=== PATIENT | male | born 1985 | race Caucasian/White ===

== ENCOUNTER 2021-02-06 17:39 | Emergency (ER) | payer SELFPAY ==
[2021-02-06 17:50] VITALS: BP 162/107; PULSE 82
[2021-02-06] MEDS ORDERED: HYDROmorphone 1 MG/ML Syringe IVPUSH STA (17:55)
[2021-02-06] MEDS ORDERED: Ondansetron 4 MG/2 ML SDV IVPUSH ONE (17:55)
[2021-02-06] MEDS ORDERED: Sodium Chloride 0.9% 1,000 ML IV SCH (18:00)
[2021-02-06] MEDS ORDERED: Sodium Chloride 0.9% 10 ML Syringe FLUSH PRN (18:11)
--- NOTE | 2021-02-06 18:25 | EDM.PDOC ---
ED HPI GENERAL MEDICAL PROBLEM - General Chief Complaint: Abdominal Pain Stated Complaint: LT SIDE ABDOMINAL PAIN Time Seen by Provider: 02/06/21 17:55 Source of Information: Reports: Patient, RN Notes Reviewed History Limitations: Reports: No Limitations - History of Present Illness INITIAL COMMENTS - FREE TEXT/NARRATIVE: Patient is a 35-year-old male who presents to the ER for the evaluation of his left-sided abdominal pain. Does state that this has been present since Monday evening, and it seems to be gradually getting worse. He does note a dull ache at baseline, that does intensify to a sharp stabbing pain with moving, coughing, or any sort of pressure changes in his abdomen. He went to the walk- in clinic yesterday, had some labs taken along with a urinalysis which were normal he was sent home with some magnesium citrate. States he has had multiple bowel movement since then and the pain has not gotten any better. He has had no fevers or chills, no signs of diarrhea, nausea or vomiting. He still has his appendix, but has had his gallbladder removed. Further denying any sort of urinary symptoms. States he was taking pain meds a few days ago however they did not seem to help so he stopped taking them. Does note that he has been fairly healthy otherwise. Left Lower Abdomen Pain Score (Numeric/FACES): 6 - Related Data Allergies Allergy/AdvReac Type Severity Reaction Status Date / Time No Known Allergies Allergy Verified 02/06/21 17:50 Home Meds: Home Meds Hydrocodone/Acetaminophen [Hydrocodone-Acetamin 5-325 mg] 1 tab PO Q6H PRN #15 tab 02/06/21 [Rx] Sertraline [Zoloft] 150 mg PO DAILY 02/06/21 [History] Past Medical History - Past Health History Medical/Surgical History: Denies Medical/Surgical History Respiratory History: Reports: PE Other Respiratory History: Pulmonary embolism Other Gastrointestinal History: biliary colic, gallstones Neurological History: Reports: Headaches, Chronic Hematologic History: Reports: Other (See Below) Other Hematologic History: Leiden Factor V Other Dermatologic History: discoloration of skin - Past Surgical History Other Cardiovascular Surgeries/Procedures: Echocardiogram GI Surgical History: Reports: Cholecystectomy Musculoskeletal Surgical History: Reports: Arthroscopic Knee Social & Family History - Tobacco Use Tobacco Use Status *Q: Current Every Day Tobacco User Years of Tobacco use: 15 Packs/Tins Daily: 0.2 - Recreational Drug Use Recreational Drug Use: No ED ROS GENERAL - Review of Systems Review Of Systems: Comprehensive ROS is negative, except as noted in HPI. ED EXAM, GI/ABD - Physical Exam Exam: See Below Exam Limited By: No Limitations General Appearance: Alert, WD/WN, No Apparent Distress Respiratory/Chest: No Respiratory Distress, Lungs Clear, Normal Breath Sounds, No Accessory Muscle Use, Chest Non-Tender Cardiovascular: Normal Peripheral Pulses, Regular Rate, Rhythm, No Edema GI/Abdominal Exam: Normal Bowel Sounds, Soft, No Distention, No Mass, Tender (LLQ mainly) Extremities: Normal Inspection, Normal Capillary Refill Neurological: Alert, Oriented, Normal Cognition, No Motor/Sensory Deficits Psychiatric: Normal Affect, Normal Mood Skin Exam: Warm, Dry, Intact, Normal Color, No Rash Course - Vital Signs Last Recorded V/S: Last Vital Signs Temp 97.8 F 02/06/21 17:48 Pulse 82 02/06/21 17:48 Resp 16 02/06/21 17:48 BP 162/107 H 02/06/21 17:48 Pulse Ox 97 02/06/21 17:48 - Orders/Labs/Meds Orders: Active Orders 24 hr Category Date Time Status Peripheral IV Care [RC] . DIRECTED Care 02/06/21 18:16 Active Sodium Chloride 0.9% [Normal Saline] 1,000 ml Med 02/06/21 18:00 Active IV ASDIRECTED Sodium Chloride 0.9% [Normal Saline] 100 ml Med 02/06/21 19:45 Active IV ASDIRECTED Sodium Chloride 0.9% [Saline Flush] Med 02/06/21 18:11 Active 10 ml FLUSH ASDIRECTED PRN Sodium Chloride 0.9% [Saline Flush] Med 02/06/21 19:45 Active 10 ml FLUSH BOLUS Peripheral IV Insertion Adult [OM.PC] Stat Oth 02/06/21 17:56 Ordered Medication Orders Sodium Chloride (Normal Saline) 1,000 mls @ 999 mls/hr IV ASDIRECTED LILLIE Last Admin: 02/06/21 19:08 Dose: 999 mls/hr Documented by: OMLLY Sodium Chloride (Normal Saline) 100 mls @ 60 drops/hr IV ASDIRECTED LILLIE Sodium Chloride (Sodium Chloride 0.9% 10 Ml Syringe) 10 ml FLUSH ASDIRECTED PRN PRN Reason: Keep Vein Open Last Admin: 02/06/21 19:07 Dose: 10 ml Documented by: MOLLY Sodium Chloride (Sodium Chloride 0.9% 10 Ml Syringe) 10 ml FLUSH BOLUS LILLIE Labs: Laboratory Tests 02/06/21 02/06/21 02/06/21 Range/Units 18:50 18:50 19:16 WBC 6.45 (4.23-9.07) K/mm3 RBC 4.92 (4.63-6.08) M/mm3 Hgb 15.1 (13.7-17.5) gm/dl Hct 43.4 (40.1-51.0) % MCV 88.2 (79.0-92.2) fl MCH 30.7 (25.7-32.2) pg MCHC 34.8 (32.2-35.5) g/dl RDW Std Deviation 42.3 (35.1-43.9) fL Plt Count 250 D (163-337) K/mm3 MPV 8.8 L (9.4-12.3) fl Neut % (Auto) 57.7 (34.0-67.9) % Lymph % (Auto) 30.1 (21.8-53.1) % Howard % (Auto) 8.2 (5.3-12.2) % Eos % (Auto) 3.3 (0.8-7.0) Baso % (Auto) 0.5 (0.1-1.2) % Neut # (Auto) 3.73 (1.78-5.38) K/mm3 Lymph # (Auto) 1.94 (1.32-3.57) K/mm3 Howard # (Auto) 0.53 (0.30-0.82) K/mm3 Eos # (Auto) 0.21 (0.04-0.54) K/mm3 Baso # (Auto) 0.03 (0.01-0.08) K/mm3 Sodium 141 (136-145) mEq/L Potassium 4.1 (3.5-5.1) mEq/L Chloride 104 (98-107) mEq/L Carbon Dioxide 26 (21-32) mEq/L Anion Gap 15.1 H (5-15) BUN 17 (7-18) mg/dL Creatinine 1.0 (0.7-1.3) mg/dL Est Cr Clr Drug Dosing 128.99 mL/min Estimated GFR (MDRD) > 60 (>60) mL/min BUN/Creatinine Ratio 17.0 (14-18) Glucose 115 H (70-99) mg/dL Calcium 8.5 (8.5-10.1) mg/dL Total Bilirubin 0.2 (0.2-1.0) mg/dL AST TNP ALT TNP Alkaline Phosphatase 78 (46-116) U/L C-Reactive Protein 1.5 H* (<1.0) mg/dL Total Protein 6.9 (6.4-8.2) g/dl Albumin 3.8 (3.4-5.0) g/dl Globulin 3.1 gm/dL Albumin/Globulin Ratio 1.2 (1-2) Lipase 125 (73-393) U/L Urine Color Yellow (Yellow) Urine Appearance Clear (Clear) Urine pH 7.0 (5.0-8.0) Ur Specific Anthony 1.025 (1.005-1.030) Urine Protein Negative (Negative) Urine Glucose (UA) Negative (Negative) Urine Ketones Negative (Negative) Urine Occult Blood Negative (Negative) Urine Nitrite Negative (Negative) Urine Bilirubin Negative (Negative) Urine Urobilinogen 0.2 (0.2-1.0) Ur Leukocyte Esterase Negative (Negative) Urine RBC 0-5 (0-5) /hpf Urine WBC 0-5 (0-5) /hpf Ur Squamous Epith Cells 0-5 (0-5) /hpf Urine Bacteria Few (FEW) /hpf Urine Mucus Few (FEW) /hpf Meds: Medications Generic Name Dose Route Start Last Admin Trade Name Freq PRN Reason Stop Dose Admin Sodium Chloride 1,000 mls @ 999 mls/hr 02/06/21 18:00 02/06/21 19:08 Normal Saline IV 999 mls/hr ASDIRECTED LILILE Administration Sodium Chloride 100 mls @ 60 drops/hr 02/06/21 19:45 Normal Saline IV ASDIRECTED LILLIE Sodium Chloride 10 ml 02/06/21 18:11 02/06/21 19:07 Sodium Chloride 0.9% 10 Ml Syringe FLUSH 10 ml ASDIRECTED PRN Administration Keep Vein Open Sodium Chloride 10 ml 02/06/21 19:45 Sodium Chloride 0.9% 10 Ml Syringe FLUSH BOLUS LILLIE Discontinued Medications Generic Name Dose Route Start Last Admin Trade Name Freq PRN Reason Stop Dose Admin Hydromorphone HCl 1 mg 02/06/21 17:55 02/06/21 19:08 Hydromorphone 1 Mg/Ml Syringe IVPUSH 02/06/21 17:56 1 mg ONETIME STA Administration Iopamidol 100 ml 02/06/21 19:35 Iopamidol 612 Mg/Ml 100 Ml Bottle IVPUSH 02/06/21 19:36 ONETIME ONE Ondansetron HCl 4 mg 02/06/21 17:55 02/06/21 19:08 Ondansetron 4 Mg/2 Ml Sdv IVPUSH 02/06/21 17:56 4 mg ONETIME ONE Administration - Re-Assessments/Exams Free Text/Narrative Re-Assessment/Exam: 02/06/21 18:24 Patient presents to the ER for his left lower quadrant pain. I will get some labs, and a CT for evaluation, patient be given Dilaudid, Zofran, fluids for initial management. 02/06/21 19:58 Laboratory evaluation has resulted for the most part, CBC is unremarkable, CMP also unremarkable, CRP mildly elevated at 1.5, urinalysis is unremarkable. CT is still pending at this time. 02/06/21 20:55 CT has been performed, and does demonstrate epiploic appendagitis around the descending colon, which would correlate with his left lower quadrant pain. I did go over the findings with the patient and he verbalized understanding we will get him a short course of opioid pain medications, until the pain seems to resolve itself. Departure - Departure Time of Disposition: 20:56 Disposition: Home, Self-Care 01 Condition: Good Clinical Impression: Epiploic appendagitis - Discharge Information *PRESCRIPTION DRUG MONITORING PROGRAM REVIEWED*: Yes *COPY OF PRESCRIPTION DRUG MONITORING REPORT IN PATIENT IRENE: No Prescriptions: Hydrocodone/Acetaminophen [Hydrocodone-Acetamin 5-325 mg] 1 tab PO Q6H PRN #15 tab PRN Reason: Pain Instructions: Abdominal Pain, Adult, [id number] Referrals: PCP,None [Primary Care Provider] - Forms: ED Department Discharge Additional Instructions: You were evaluated in the ER today for your left lower quadrant abdominal pain. Laboratory evaluation done at today's visit demonstrated no sign of a bacterial infection, and the CT was conclusive of epiploic appendagitis, which is where a piece of fat hanging off your colon has twisted on itself, and is dying off. There is no surgical management for this, and it is usually a self-limiting process and should get better in a few days time. Please monitor your symptoms, if you should develop any fever, nausea/vomiting/diarrhea, or where you cannot have a bowel movement, he should probably get evaluated by another clinician to make sure that you are not getting sick. You were given a prescription for a strong pain medication, hydrocodone/acetamin ophen 5/325 mg, please take 1 tab every 6 hours as needed for pain not relieved by Tylenol or ibuprofen alone. Please note this medication does contain Tylenol in it, so do not take more than 4000 mg in a 24-hour time span. These medications can be addictive, so please take as few as possible to achieve adequate pain control. These meds can also be quite constipating, recommend that you increase your oral fluid intake and take a stool softener like MiraLAX while taking these medications. Do not drive while taking this medication. This medication was electronically sent to the [place] pharmacy located in the [facility] grocery store. Do not hesitate to return to the ER at any time if symptoms change or worsen. Sepsis Event Note (ED) - Evaluation Sepsis Screening Result: No Definite Risk - Focused Exam Vital Signs: Vital Signs Temp Pulse Resp BP Pulse Ox 02/06/21 17:48 97.8 F 82 16 162/107 H 97 - My Orders Last 24 Hours: My Active Orders 02/06/21 17:56 Peripheral IV Insertion Adult [OM.PC] Stat 02/06/21 18:00 Sodium Chloride 0.9% [Normal Saline] 1,000 ml IV ASDIRECTED 02/06/21 18:11 Sodium Chloride 0.9% [Saline Flush] 10 ml FLUSH ASDIRECTED PRN 02/06/21 18:16 Peripheral IV Care [RC] . DIRECTED 02/06/21 19:45 Sodium Chloride 0.9% [Normal Saline] 100 ml IV ASDIRECTED Sodium Chloride 0.9% [Saline Flush] 10 ml FLUSH BOLUS - Assessment/Plan Last 24 Hours: My Active Orders 02/06/21 17:56 Peripheral IV Insertion Adult [OM.PC] Stat 02/06/21 18:00 Sodium Chloride 0.9% [Normal Saline] 1,000 ml IV ASDIRECTED 02/06/21 18:11 Sodium Chloride 0.9% [Saline Flush] 10 ml FLUSH ASDIRECTED PRN 02/06/21 18:16 Peripheral IV Care [RC] . DIRECTED 02/06/21 19:45 Sodium Chloride 0.9% [Normal Saline] 100 ml IV ASDIRECTED Sodium Chloride 0.9% [Saline Flush] 10 ml FLUSH BOLUS
[2021-02-06] MEDS ORDERED: Iopamidol 612 MG/ML 100 ML Bottle IVPUSH ONE (19:35)
[2021-02-06] MEDS ORDERED: Sodium Chloride 0.9% 100 ML IV SCH (19:45)
[2021-02-06] MEDS ORDERED: Sodium Chloride 0.9% 10 ML Syringe FLUSH SCH (19:45)
--- NOTE | 2021-02-06 20:42 | CT ---
CT abdomen and pelvis Technique: Multiple axial sections were obtained from above the dome of the diaphragm inferiorly through the pubic symphysis. Intravenous and oral contrast were utilized. Delayed images were also obtained through the abdomen and pelvis. Reconstructed coronal and sagittal images were obtained. Comparison: No prior CT abdomen or pelvis exam, prior abdominal x-ray of 06/04/14. Findings: Visualized lung bases show mild dependent atelectasis posteriorly as an incidental note. Liver contains no focal parenchymal abnormality. Surgical clips are seen from prior cholecystectomy. Spleen size appears at the upper limits of normal with length of 13.9 cm. Pancreas appears normal. Adrenal glands show no nodule. Kidneys show symmetric contrast enhancement. No hydronephrosis or mass is seen. Delayed images show contrast within the ureters as well as minimal contrast within the bladder. Abdominal aorta shows no aneurysm. No retroperitoneal adenopathy or mesenteric abnormalities are seen. Appendix is seen which is normal in size. No pelvic mass or adenopathy is seen. Several surgical clips appear to be present within the lower left pelvis. Inflammatory change is seen around the descending colon with no corresponding abnormality being seen and this is most likely due to epiploic appendagitis. Impression: 1. Inflammatory change around the descending colon having the appearance of so-called epiploic appendagitis. 2. Spleen size is at the upper limits of normal at 13.9 cm in length. 3. Other incidental findings as noted above. Diagnostic code #3
== END 2021-02-06 21:14 | disposition home or self-care (01) ==
LOC: JD.ED 17:39
DX: K63.89 Other specified diseases of intestine (principal); Z72.0 Tobacco use
CPT/HCPCS: 36415; 74177; 80053; 81001; 83690; 85025; 86140; 96374; 96375; 99284; J1170; J2405; J7030

== ENCOUNTER 2021-07-18 17:18 | Emergency (ER) | payer BC ==
[2021-07-18 17:29] VITALS: BP 161/105; PULSE 69
--- NOTE | 2021-07-18 18:25 | EDM.PDOC ---
ED HPI GENERAL MEDICAL PROBLEM - General Chief Complaint: Lower Extremity Injury/Pain Stated Complaint: PAIN IN ANKLES Time Seen by Provider: 07/18/21 17:29 Source of Information: Reports: Patient History Limitations: Reports: No Limitations - History of Present Illness INITIAL COMMENTS - FREE TEXT/NARRATIVE: The patient presents with left ankle pain and swelling. He was hit by a chain in the left lower leg above the ankle a couple of weeks ago. He now developed some pain and some redness to the left ankle area. No new injury. He does have a history of factor V leiden deficiency. He is worried he may have a DVT. He is not on any blood thinners now. He has no chest pain or shortness of breath. Onset: Gradual Duration: Day(s): Location: Reports: Lower Extremity, Left (ankle) Quality: Reports: Ache Severity: Mild Improves with: Reports: None Worsens with: Reports: None Associated Symptoms: Reports: No Other Symptoms Left Ankle Pain Score (Numeric/FACES): 5 - Related Data Allergies Allergy/AdvReac Type Severity Reaction Status Date / Time No Known Allergies Allergy Verified 07/18/21 17:30 Home Meds: Home Meds Sertraline [Zoloft] 150 mg PO DAILY 02/06/21 [History] Past Medical History - Past Health History Medical/Surgical History: Denies Medical/Surgical History Respiratory History: Reports: PE Other Respiratory History: Pulmonary embolism Other Gastrointestinal History: biliary colic, gallstones Neurological History: Reports: Headaches, Chronic Psychiatric History: Reports: Depression Hematologic History: Reports: Other (See Below) Other Hematologic History: Leiden Factor V Dermatologic History: Reports: Other (See Below) Other Dermatologic History: vitiligo - Past Surgical History Other Cardiovascular Surgeries/Procedures: Echocardiogram GI Surgical History: Reports: Cholecystectomy Musculoskeletal Surgical History: Reports: Arthroscopic Knee Social & Family History - Tobacco Use Tobacco Use Status *Q: Current Every Day Tobacco User Years of Tobacco use: 15 Packs/Tins Daily: 0.1 - Caffeine Use Caffeine Use: Reports: Coffee, Energy Drinks, Soda - Recreational Drug Use Recreational Drug Use: No Review of Systems - Review of Systems Review Of Systems: See Below Constitutional: Reports: No Symptoms Eyes: Reports: No Symptoms Ears: Reports: No Symptoms Nose: Reports: No Symptoms Mouth/Throat: Reports: No Symptoms Respiratory: Reports: No Symptoms Cardiovascular: Reports: No Symptoms GI/Abdominal: Reports: No Symptoms Genitourinary: Reports: No Symptoms Musculoskeletal: Reports: Other (left lateral ankle pain and swelling) ED EXAM, GENERAL - Physical Exam Exam: See Below Exam Limited By: No Limitations General Appearance: Alert, No Apparent Distress Ears: Normal External Exam Nose: Normal Inspection Head: Atraumatic, Normocephalic Neck: Normal Inspection Respiratory/Chest: No Respiratory Distress, Lungs Clear, Normal Breath Sounds Cardiovascular: Regular Rate, Rhythm, No Edema, No Murmur GI/Abdominal: Soft, Non-Tender, No Organomegaly Back Exam: Normal Inspection Extremities: Other (Mild pain upon palpation with edema to the left lateral ankle area. Good sensation and pulses distally. There is very minimal erythema.) Course - Vital Signs Last Recorded V/S: Last Vital Signs Temp 97.1 F 07/18/21 17:29 Pulse 69 07/18/21 17:29 Resp 18 07/18/21 17:29 BP 161/105 H 07/18/21 17:29 Pulse Ox 100 07/18/21 17:29 - Re-Assessments/Exams Free Text/Narrative Re-Assessment/Exam: 07/18/21 18:25 I ordered an US of his left leg. 07/18/21 19:39 The US shows no findings of DVT withing the left lower extremity or within the right common femoral vein. Thrombophlebitis within a superficial femoral vein within the lower anterior mcginnis. The patient has a history of factor V leiden deficiency. This is not a DVT and usually can be treated with aspirin and compression stockings but with his history it may be worth starting him back on xarelto. We talked for awhile and felt the aspirin and compression stockings were the way to go. I will refer him to Dr Rosado in our clinic. Departure - Departure Time of Disposition: 19:45 Disposition: Home, Self-Care 01 Condition: Good Clinical Impression: Superficial thrombophlebitis of left leg - Discharge Information *PRESCRIPTION DRUG MONITORING PROGRAM REVIEWED*: Not Applicable *COPY OF PRESCRIPTION DRUG MONITORING REPORT IN PATIENT IRENE: Not Applicable Referrals: PCP,None [Primary Care Provider] - Alonzo Plata MD [Physician] - 1 Week Forms: ED Department Discharge Additional Instructions: Take 81mg of aspirin daily. Wear your compression stockings for the next couple of weeks. Follow up with Dr Alonzo Plata. Please return if you are worse. Sepsis Event Note (ED) - Focused Exam Vital Signs: Vital Signs Temp Pulse Resp BP Pulse Ox 07/18/21 17:29 97.1 F 69 18 161/105 H 100
--- NOTE | 2021-07-18 19:16 | US ---
Left lower extremity deep venous ultrasound: Duplex and color Doppler evaluation was obtained of the left common femoral, proximal greater saphenous, superficial femoral, popliteal, posterior tibial peroneal veins. Right common femoral vein was also evaluated. Comparison: Prior bilateral lower extremity deep venous ultrasound of 05/13/15. Findings: Superficial vein within the lower anterior mcginnis shows evidence of thrombosis compatible with thrombophlebitis. Deep veins show normal phasic flow, augmentation and compression. Impression: 1. No findings of deep venous thrombosis within the left lower extremity or within the right common femoral vein. 2. Thrombophlebitis within a superficial femoral vein within the lower anterior mcginnis. Diagnostic code #3
[2021-07-18] MEDS ORDERED: Aspirin 81 MG Tab.Chew PO ONE (19:45)
== END 2021-07-18 19:54 | disposition home or self-care (01) ==
LOC: JD.ED 17:18
DX: I80.02 Phlebitis and thrombophlebitis of superficial vessels of left lower extremity (principal); Z86.711 Personal history of pulmonary embolism; Z72.0 Tobacco use; Z79.899 Other long term (current) drug therapy
CPT/HCPCS: 93971; 99284; A9270

== ENCOUNTER 2021-07-25 11:00 | Emergency (ER) | payer BC ==
[2021-07-25 11:30] VITALS: BP 124/83; PULSE 81
--- NOTE | 2021-07-25 13:07 | US ---
Deep venous ultrasound: Duplex and color Doppler evaluation was obtained of the left common femoral vein, proximal greater saphenous vein, superficial femoral vein, popliteal, posterior tibial and peroneal veins. Right common femoral vein was also evaluated. Comparison: Prior left lower extremity deep venous ultrasound of 07/18/21. Findings: Normal phasic flow, augmentation and compression are seen. Small superficial vein within the area of pain is seen which shows evidence of clot compatible with superficial thrombophlebitis. This is felt to be fairly similar to previous exam. Impression: 1. No findings of deep venous thrombosis within the left lower extremity vein or within the right common femoral vein. 2. Thrombophlebitis within the anterior mcginnis which appears fairly stable from previous exam. Diagnostic code #3
--- NOTE | 2021-07-25 13:30 | EDM.PDOC ---
ED HPI GENERAL MEDICAL PROBLEM - General Chief Complaint: Lower Extremity Injury/Pain Stated Complaint: LT FOOT PAIN Time Seen by Provider: 07/25/21 11:29 Source of Information: Reports: Patient History Limitations: Reports: No Limitations - History of Present Illness INITIAL COMMENTS - FREE TEXT/NARRATIVE: The patient presents with left lower leg pain. He hit his leg a couple of weeks ago. He has a history of factor V leiden deficiency and had a PE before. He came to bee seen last week here in the ER by myself because after a week he still had some pain and swelling. I did an US and it showed no DVT but superficial thrombophlebitis. He elected to do aspirin and compression stockings and not blood thinners. He is currently off of them. He did go to the walk in clinic recently because he had bronchitis and was put on antibiotics. He returns today because he feels there is more swelling. He has no chest pain or shortness of breath. Onset: Gradual Duration: Week(s): (2) Location: Reports: Lower Extremity, Left Quality: Reports: Ache Severity: Mild Improves with: Reports: None Worsens with: Reports: None Associated Symptoms: Reports: Cough. Denies: Chest Pain, Fever/Chills, Nausea/Vomiting, Shortness of Breath Left Lower Leg Pain Score (Numeric/FACES): 3 - Related Data Allergies Allergy/AdvReac Type Severity Reaction Status Date / Time No Known Allergies Allergy Verified 07/25/21 11:30 Home Meds: Home Meds Sertraline [Zoloft] 100 mg PO DAILY 02/06/21 [History] Past Medical History - Past Health History Medical/Surgical History: Denies Medical/Surgical History Respiratory History: Reports: PE Other Respiratory History: Pulmonary embolism Other Gastrointestinal History: biliary colic, gallstones Neurological History: Reports: Headaches, Chronic Psychiatric History: Reports: Depression Hematologic History: Reports: Other (See Below) Other Hematologic History: Leiden Factor V Dermatologic History: Reports: Other (See Below) Other Dermatologic History: vitiligo - Infectious Disease History Infectious Disease History: Reports: Novel Coronavirus - Past Surgical History Other Cardiovascular Surgeries/Procedures: Echocardiogram GI Surgical History: Reports: Cholecystectomy Musculoskeletal Surgical History: Reports: Arthroscopic Knee Social & Family History - Family History Family Medical History: No Pertinent Family History - Tobacco Use Tobacco Use Status *Q: Current Every Day Tobacco User Years of Tobacco use: 15 Packs/Tins Daily: 0.2 - Caffeine Use Caffeine Use: Reports: Coffee, Energy Drinks, Soda - Recreational Drug Use Recreational Drug Use: Yes Drug Use in Last 12 Months: No Review of Systems - Review of Systems Review Of Systems: See Below Constitutional: Reports: No Symptoms Eyes: Reports: No Symptoms Ears: Reports: No Symptoms Nose: Reports: No Symptoms Mouth/Throat: Reports: No Symptoms Respiratory: Reports: No Symptoms Cardiovascular: Reports: No Symptoms GI/Abdominal: Reports: No Symptoms Genitourinary: Reports: No Symptoms Musculoskeletal: Reports: Other (left leg pain and swelling) ED EXAM, GENERAL - Physical Exam Exam: See Below Exam Limited By: No Limitations General Appearance: Alert, No Apparent Distress Ears: Normal External Exam Nose: Normal Inspection Head: Atraumatic, Normocephalic Neck: Normal Inspection Respiratory/Chest: No Respiratory Distress, Lungs Clear, Normal Breath Sounds Cardiovascular: Regular Rate, Rhythm, No Edema, No Murmur GI/Abdominal: Soft, Non-Tender, No Organomegaly, No Mass Extremities: Other (mild pain upon palpation to the left lower leg with some edema and mild erythema. Good sensation and pulses distally.) Course - Vital Signs Last Recorded V/S: Last Vital Signs Temp 97.9 F 07/25/21 11:24 Pulse 81 07/25/21 11:24 Resp 18 07/25/21 11:24 BP 124/83 07/25/21 11:24 Pulse Ox 96 07/25/21 11:24 - Re-Assessments/Exams Free Text/Narrative Re-Assessment/Exam: 07/25/21 13:29 I ordered an US and it shows no findings of deep venous thrombosis within the left lower extremity vein or within the right common femoral vein. Thrombophlebitis within the anterior mcginnis which appears fairly stable from previous exam. He elects to continue with aspirin and the stockings. Departure - Departure Time of Disposition: 13:35 Disposition: Home, Self-Care 01 Condition: Good Clinical Impression: Superficial thrombophlebitis of left leg - Discharge Information *PRESCRIPTION DRUG MONITORING PROGRAM REVIEWED*: Not Applicable *COPY OF PRESCRIPTION DRUG MONITORING REPORT IN PATIENT IRENE: Not Applicable Referrals: PCP,None [Primary Care Provider] - Alonzo Plata MD [Physician] - 1 Week Additional Instructions: Keep taking the aspirin daily and using the compression stockings. Follow up with Dr Rosado within a week. Please return if you are worse. Sepsis Event Note (ED) - Evaluation Sepsis Screening Result: No Definite Risk - Focused Exam Vital Signs: Vital Signs Temp Pulse Resp BP Pulse Ox 07/25/21 11:24 97.9 F 81 18 124/83 96
== END 2021-07-25 13:40 | disposition home or self-care (01) ==
LOC: JD.ED 11:00
DX: I80.11 Phlebitis and thrombophlebitis of right femoral vein (principal); Z72.0 Tobacco use
CPT/HCPCS: 93971-26-LT; 93971-LT; 99283-25

== ENCOUNTER 2022-01-05 06:37 | Emergency (ER) | payer BC ==
[2022-01-05 08:32] LABS: ESTIMATED GFR > 60 mL/min (>60)
[2022-01-05 09:19] VITALS: BP 112/78; PULSE 67
== END 2022-01-05 09:19 | disposition home or self-care (01) ==
LOC: JD.ED 06:37
DX: I82.811 Embolism and thrombosis of superficial veins of right lower extremity (principal); Z86.16 Personal history of COVID-19; Z79.01 Long term (current) use of anticoagulants
CPT/HCPCS: 36415; 80053; 85025; 85610; 85730; 93971-26-RT; 93971-RT; 99283; 99284-25

== ENCOUNTER 2024-06-14 07:56 | Emergency (ER) | payer BC, OTHER ==
[2024-06-14] MEDS: Ketorolac 15 MG/ML SDV IVPUSH ONE (09:07)
[2024-06-14] MEDS: Sodium Chloride 0.9% 10 ML Syringe FLUSH PRN (09:08)
[2024-06-14 09:10] LABS: BASOPHILS PERCENT AUTO 0.8 % (0.0-1.0); EOSINOPHILS ABSOLUTE AUTO 0.2 K/mm3 (0.0-0.4); EOSINOPHILS PERCENT AUTO 4.6 % (0.0-6.0); HEMATOCRIT 41.9 % (42.0-52.0); IMMATURE GRAN ABSOLUTE AUTO 0.01 K/mm3 (0.00-0.05); IMMATURE GRAN PERCENT AUTO 0.2 % (0.0-0.4); LYMPHOCYTES ABSOLUTE AUTO 1.8 K/mm3 (1.0-4.8); MEAN CORPUSCULAR HEMOGLOBIN 30.7 pg (28.0-32.0); MEAN CORPUSCULAR HGB CONC 35.8 g/dl (32.0-36.0); MEAN CORPUSCULAR VOLUME 85.9 fl (83.0-99.0); MEAN PLATELET VOLUME 8.6 fl (9.4-12.4); MONOCYTES ABSOLUTE AUTO 0.4 K/mm3 (0.0-0.8); MONOCYTES PERCENT AUTO 8.3 % (0.0-8.0); NEUTROPHILS ABSOLUTE AUTO 2.5 K/mm3 (1.8-7.7); NEUTROPHILS PERCENT AUTO 50.1 % (41.0-71.0); PLATELET COUNT,PLT 223 K/mm3 (150-400); RED BLOOD CELL COUNT 4.88 M/mm3 (4.52-5.90); WHITE BLOOD CELL COUNT,WBC 5.05 K/mm3 (3.9-11.3)
[2024-06-14 09:32] LABS: A/G RATIO 1.4 (1-2); ALBUMIN 4.1 g/dl (3.4-5.0); ANION GAP 14.6 (5-15); BILIRUBIN TOTAL 0.4 mg/dL (0.2-1.0); BUN/CREATININE RATIO 18.2 (14-18); CALCIUM 9.4 mg/dL (8.5-10.1); CREATININE 1.1 mg/dL (0.7-1.3); EST CRCL DRUG DOSING (CG) 112.88 mL/min; POTASSIUM,K 3.6 mEq/L (3.5-5.1); PROTEIN TOTAL,TP 7.1 g/dl (6.4-8.2)
[2024-06-14 09:58] LABS: APPEARANCE,URINE SLT CLOUDY (Clear); BILIRUBIN,URINE NEGATIVE (Negative); COLOR,URINE YELLOW (Yellow); GLUCOSE,URINE NEGATIVE (Negative); KETONES,URINE NEGATIVE (Negative); LEUKOCYTE ESTERASE,URINE NEGATIVE (Negative); NITRITE,URINE NEGATIVE (Negative); OCCULT BLOOD,URINE NEGATIVE (Negative); PROTEIN,URINE NEGATIVE (Negative); UROBILINOGEN,URINE 0.2 (0.2-1.0)
[2024-06-14 11:25] VITALS: BP 142/93; PULSE 68
== END 2024-06-14 11:22 | disposition home or self-care (01) ==
LOC: JD.ED 07:56
DX: M54.50 Low back pain, unspecified (principal); Z86.73 Personal history of transient ischemic attack (TIA), and cerebral infarction without residual deficits; Z90.49 Acquired absence of other specified parts of digestive tract; F17.210 Nicotine dependence, cigarettes, uncomplicated; Z79.899 Other long term (current) drug therapy
CPT/HCPCS: 36415; 72131; 72131-26; 80053; 81003; 85025; 96374; 99283-25; J1885; J3490